=== PATIENT | female | born 1970 | race African-American/Black ===

== ENCOUNTER 2024-12-29 17:23 | Inpatient (IN) | payer OTHER ==
[~2024-12-29] VITALS: Ht 167.6 cm; Wt 131.4 kg
[2024-12-29 17:45] LABS: VENOUS BASE EXCESS 0.6 (-2.0-2.0); VENOUS HCO3 25.5 MMOL/L (23.0-27.0); VENOUS O2 SATURATION 92.3 % (60.0-80.0); VENOUS PARTIAL PRESSURE CO2 42.2 mmHg (38.0-50.0); VENOUS PARTIAL PRESSURE O2 70.0 mmHg (30.0-50.0); VENOUS PH 7.399 UNITS (7.330-7.430); VENOUS STANDARD HCO3 25.0 MMOL/L; VENOUS TOTAL CO2 26.8 MMOL/L (24.0-28.0)
[2024-12-29 18:00] LABS: BASO # 0.1 10^3/uL (0.0-0.2); BASO % 0.7 % (0.0-1.0); EOS # 0.4 10^3/uL (0.0-0.5); EOS % 5.2 % (0.0-3.0); LYMPH # 1.9 10^3/uL (1.5-5.0); LYMPH % 27.8 % (24.0-44.0); MONO # 0.6 10^3/uL (0.0-0.8); MONO % 8.3 % (2.0-8.0); NEUTROPHILS # 4.0 10^3/uL (1.5-8.5); NEUTROPHILS % 57.7 % (36.0-66.0); PLATELET COUNT, AUTOMATED 200 10^3/uL (150-450)
[2024-12-29 18:07] LABS: INR 1.39
[2024-12-29 18:14] LABS: CPK CREATINE PHOSPHOKINASE 332 U/L (34-145)
[2024-12-29 18:20] LABS: ALT/SGPT 13 U/L (7.0-40); AST/SGOT 16 U/L (<34); CALCIUM LEVEL 8.0 MG/DL (8.5-10.1); CARBON DIOXIDE LEVEL 26 MMOL/L (20-31); CHLORIDE LEVEL 106 MMOL/L (98-107); CK-MB VALUE MASS < 1.0 NG/ML (<3.6); CREATININE FOR GFR 0.72 MG/DL (0.55-1.30); FREE T4 1.11 NG/DL (0.89-1.76); GLOMERULAR FILTRATION RATE > 90.0 (>51); MB/CK RELATIVE INDEX 0.30 (< OR =4); POTASSIUM SERUM 3.6 MMOL/L (3.5-5.1); SODIUM LEVEL 141 MMOL/L (136-145)
[2024-12-29 18:32] LABS: IRON (FE) 23 UG/DL (50-170); PERCENT SATURATION 7.0 % (13.2-45.0)
[2024-12-29] MEDS: PANTOPRAZOLE 40MG VIAL IV ONE ×2 (18:48→21:14)
[2024-12-29 19:33] LABS: CK-MB VALUE MASS < 1.0 NG/ML (<3.6)
[2024-12-29 19:35] LABS: CPK CREATINE PHOSPHOKINASE 319 U/L (34-145); MB/CK RELATIVE INDEX 0.31 (< OR =4)
[2024-12-29 19:54] VITALS: BP 162/69; TEMP 97.6; O2SAT 96
[2024-12-29 20:15] VITALS: BP 166/74; TEMP 97.2; O2SAT 97
[2024-12-29] MEDS ORDERED: TELM1TAB37 PO (20:44)
[2024-12-29] MEDS ORDERED: MONT10TA97 PO (20:44)
[2024-12-29] MEDS ORDERED: TIOT18INH INH (20:44)
[2024-12-29] MEDS ORDERED: DULA3PEN SQ (20:44)
[2024-12-29] MEDS ORDERED: ATOR1TAB21 PO (20:44)
[2024-12-29] MEDS ORDERED: ALBU2.5V10 INH (20:44)
[2024-12-29] MEDS ORDERED: FOLI0.4T5 PO (20:44)
[2024-12-29] MEDS ORDERED: IBUP80TA PO (20:44)
[2024-12-29] MEDS ORDERED: CARV12.5 PO (20:44)
[2024-12-29] MEDS ORDERED: FLUT15.820 NARES (20:44)
[2024-12-29] MEDS ORDERED: PANT40TA29 PO (20:44)
[2024-12-29] MEDS ORDERED: METF10004 PO (20:44)
[2024-12-29] MEDS ORDERED: VENTAER INH (20:44)
[2024-12-29] MEDS ORDERED: TIZA4CAP3 PO (20:44)
[2024-12-29] MEDS ORDERED: ROPI1TAB73 PO (20:44)
[2024-12-29] MEDS ORDERED: LEVO150T7 PO (20:44)
[2024-12-29] MEDS ORDERED: CLAR10CA3 PO (20:44)
[2024-12-29] MEDS ORDERED: ELIQ5TAB PO (20:44)
[2024-12-29] MEDS ORDERED: DULO1CAP6 PO (20:44)
[2024-12-29] MEDS ORDERED: NEUR800T PO (20:44)
[2024-12-29] MEDS ORDERED: FLEC100T27 PO (20:44)
[2024-12-29] MEDS ORDERED: HOME MED LIST COMPLETE! XX SCH (20:45)
[2024-12-29 21:06] VITALS: BP 173/74; TEMP 97.4; O2SAT 95
[2024-12-29] MEDS: OCTREOTIDE ACETATE 100MCG/ML VIAL **IV ADMINISTRATION ONLY IV ONE (21:16)
[2024-12-29] MEDS: cefTRIAXone SOD 1 GM in DEXTROSE 5% (D5W) ADV/MINI-BAG 50 ML IV SCH (21:39)
[2024-12-29] MEDS: PANTOPRAZOLE SODIUM 40 MG in DEXTROSE 5% (D5W) ADV/MINI-BAG 50 ML IV SCH (22:23)
[2024-12-29 22:25] VITALS: BP 184/79; TEMP 97.4; O2SAT 95
[2024-12-29 22:45] VITALS: BP 183/84; TEMP 97.6; O2SAT 95
[2024-12-29 23:44] VITALS: BP 176/80; TEMP 97.1; O2SAT 95
[2024-12-30] VITALS (18 sets, daily range): BP systolic 119–197; BP diastolic 56–90; PULSE 72; TEMP 97.6–98.1; O2SAT 89–98
[2024-12-30] MEDS: FUROSEMIDE 40 MG/4 ML VIAL IV ONE (00:39)
[2024-12-30] MEDS: MORPHINE 2 MG/ML 1 ML VIAL IV ONE ×2 (04:36→13:11)
[2024-12-30 05:02] LABS: PLATELET COUNT, AUTOMATED 204 10^3/uL (150-450)
[2024-12-30 05:24] LABS: CK-MB VALUE MASS 1.0 NG/ML (<3.6)
[2024-12-30 05:25] LABS: CPK CREATINE PHOSPHOKINASE 319.0 U/L (34-145); MB/CK RELATIVE INDEX 0.31 (< OR =4)
[2024-12-30] MEDS ORDERED: ALBUTEROL 90 MCG/ACT 8 GM HFA INHALER INH PRN (05:40)
[2024-12-30] MEDS ORDERED: ALBUTEROL SULFATE 2.5 MG/0.5 ML INH CONCENTRATE NEB SOLN INH PRN (05:40)
[2024-12-30 05:50] LABS: ALT/SGPT 15 U/L (7.0-40); AST/SGOT 20 U/L (<34); CALCIUM LEVEL 8.6 MG/DL (8.5-10.1); CARBON DIOXIDE LEVEL 27 MMOL/L (20-31); CHLORIDE LEVEL 105 MMOL/L (98-107); CREATININE FOR GFR 0.68 MG/DL (0.55-1.30); GLOMERULAR FILTRATION RATE > 90.0 (>51); MAGNESIUM LEVEL 1.9 MG/DL (1.8-2.4); POTASSIUM SERUM 3.8 MMOL/L (3.5-5.1); SODIUM LEVEL 145 MMOL/L (136-145)
[2024-12-30] MEDS: NS (Normal Saline) 0.9% 1,000 ML IV SCH (06:36)
[2024-12-30] MEDS ORDERED: GLUCAGON INJ 1 MG VIAL SC PRN (08:35)
[2024-12-30] MEDS ORDERED: MORPHINE 2 MG/ML 1 ML VIAL IV PRN (08:35)
[2024-12-30] MEDS ORDERED: GLUCOSE 4 GM CHEW PO PRN (08:35)
[2024-12-30] MEDS ORDERED: DEXTROSE 50% 50 ML SYRINGE IV PRN (08:35)
[2024-12-30] MEDS: PANTOPRAZOLE 40MG VIAL IV SCH (09:00)
[2024-12-30] MEDS: MORPHINE 4 MG/ML 1 ML VIAL IV PRN (09:00)
[2024-12-30] MEDS: TIOTROPIUM BROM 2.5MCG/ACTUATION 4GM INH INH SCH (09:33)
[2024-12-30] MEDS: INSULIN LISPRO (NovoLOG) PER UNIT SC SCH ×2 (12:00→20:49)
[2024-12-30] MEDS ORDERED: GABA-284 PO (12:53)
[2024-12-30] MEDS: MONTELUKAST 10 MG TAB PO SCH (13:09)
[2024-12-30] MEDS: FOLIC ACID 1 MG TAB PO SCH (13:09)
[2024-12-30] MEDS: SUCRALFATE SUSP 1GM/10ML UD PO SCH (13:10)
[2024-12-30] MEDS: FLECAINIDE 50 MG TABLET PO SCH (13:11)
[2024-12-30] MEDS: LEVOTHYROXINE 150 MCG TABLET (0.15 MG) PO SCH (13:45)
[2024-12-30] MEDS ORDERED: PROHANCE 279.3MG/ML 5ML VIAL As Ordered ONE (13:47)
[2024-12-30] MEDS ORDERED: PROHANCE 279.3MG/ML 15ML VIAL As Ordered ONE (13:49)
[2024-12-30] MEDS: GABAPENTIN 400 MG CAP PO PRN (15:31)
[2024-12-30 16:22] LABS: PLATELET COUNT, AUTOMATED 177 10^3/uL (150-450)
[2024-12-30] MEDS: ATORVASTATIN 20 MG TAB PO SCH (20:42)
[2024-12-31] VITALS (22 sets, daily range): BP systolic 107–150; BP diastolic 54–70; TEMP 97.6–98.4; O2SAT 87–98
[2024-12-31 03:32] LABS: APPEARANCE, URINE CLEAR (CLEAR); BACTERIA, URINE AUTO NEGATIVE (NEGATIVE); BILIRUBIN, URINE AUTO NEGATIVE (NEGATIVE); BLOOD, URINE BLOOD NEGATIVE (NEGATIVE); GLUCOSE, URINE (UA) AUTO NEGATIVE (NEGATIVE); KETONE, URINE AUTO NEGATIVE (NEGATIVE); LEUKOCYTE ESTERASE, URINE AUTO NEGATIVE (NEGATIVE); NITRITE, URINE AUTO NEGATIVE (NEGATIVE); PROTEIN, URINE AUTO NEGATIVE (NEGATIVE); RBC, URINE AUTO 0 /HPF (0-3); SPECIFIC GRAVITY URINE AUTO 1.012 (1.002-1.035); SQUAMOUS EPITHELIAL CELL UR AU 0 /HPF (0-6); UROBILINOGEN, URINE AUTO 0.2 mg/dL (0.0-2.0); WBC, URINE AUTO 1 /HPF (0-3)
[2024-12-31 06:11] LABS: PLATELET COUNT, AUTOMATED 188 10^3/uL (150-450)
[2024-12-31 06:37] LABS: ALT/SGPT 12.0 U/L (7.0-40); AST/SGOT 12.0 U/L (<34); CALCIUM LEVEL 7.7 MG/DL (8.5-10.1); CARBON DIOXIDE LEVEL 28.0 MMOL/L (20-31); CHLORIDE LEVEL 104.0 MMOL/L (98-107); CREATININE FOR GFR 0.81 MG/DL (0.55-1.30); GLOMERULAR FILTRATION RATE 85.7 (>51); POTASSIUM SERUM 3.3 MMOL/L (3.5-5.1); SODIUM LEVEL 143.0 MMOL/L (136-145)
[2024-12-31] MEDS: INSULIN LISPRO (NovoLOG) PER UNIT SC SCH (07:30)
[2024-12-31] MEDS: POTASSIUM CHLORIDE 10MEQ SR TABLET PO ONE (15:32)
[2024-12-31] MEDS: MORPHINE 4 MG/ML 1 ML VIAL IV PRN (23:03)
[2025-01-01] VITALS (12 sets, daily range): BP systolic 146–185; BP diastolic 65–86; TEMP 97.3–98.6; O2SAT 88–97
[2025-01-01 06:23] LABS: PLATELET COUNT, AUTOMATED 193 10^3/uL (150-450)
[2025-01-01 06:56] LABS: ALT/SGPT < 9 U/L (7.0-40); AST/SGOT 13 U/L (<34); CALCIUM LEVEL 7.7 MG/DL (8.5-10.1); CARBON DIOXIDE LEVEL 26 MMOL/L (20-31); CHLORIDE LEVEL 106 MMOL/L (98-107); CREATININE FOR GFR 0.66 MG/DL (0.55-1.30); GLOMERULAR FILTRATION RATE > 90.0 (>51); POTASSIUM SERUM 3.4 MMOL/L (3.5-5.1); SODIUM LEVEL 141 MMOL/L (136-145)
[2025-01-01] MEDS: KCL 10MEQ/100ML SWI (KRUN) 10 MEQ in IV 1 EA IV SCH (08:23)
[2025-01-01] MEDS: POTASSIUM CHLORIDE 10MEQ SR TABLET PO ONE (10:09)
[2025-01-01] MEDS ORDERED: GABA-1635 PO (14:07)
[2025-01-01] MEDS ORDERED: LIDOCAINE 2% 100 MG/5 ML SDV (FOR ANES.) As Ordered ONE (16:03)
[2025-01-01] MEDS: POLYETHYLENE GLYCOL 238 GM BOTTLE PO ONE (17:07)
[2025-01-01 19:11] LABS: CALCIUM LEVEL 8.5 MG/DL (8.5-10.1); CARBON DIOXIDE LEVEL 25 MMOL/L (20-31); CHLORIDE LEVEL 105 MMOL/L (98-107); CREATININE FOR GFR 0.63 MG/DL (0.55-1.30); GLOMERULAR FILTRATION RATE > 90.0 (>51); POTASSIUM SERUM 3.8 MMOL/L (3.5-5.1); SODIUM LEVEL 139 MMOL/L (136-145)
[2025-01-02] VITALS (8 sets, daily range): BP systolic 147–184; BP diastolic 70–81; TEMP 96.5–98.2; O2SAT 90–96
[2025-01-02] MEDS: MAGNESIUM CITRATE 300 ML BTL PO ONE (06:01)
[2025-01-02 06:28] LABS: PLATELET COUNT, AUTOMATED 223 10^3/uL (150-450)
[2025-01-02 07:01] LABS: ALT/SGPT 9 U/L (7.0-40); AST/SGOT 15 U/L (<34); CALCIUM LEVEL 8.4 MG/DL (8.5-10.1); CARBON DIOXIDE LEVEL 25 MMOL/L (20-31); CHLORIDE LEVEL 104 MMOL/L (98-107); CREATININE FOR GFR 0.68 MG/DL (0.55-1.30); GLOMERULAR FILTRATION RATE > 90.0 (>51); POTASSIUM SERUM 3.6 MMOL/L (3.5-5.1); SODIUM LEVEL 140 MMOL/L (136-145)
[2025-01-02] MEDS: MORPHINE 2 MG/ML 1 ML VIAL IV PRN (10:02)
[2025-01-02] MEDS ORDERED: MORPHINE 2 MG/ML 1 ML VIAL IV ONE (20:00)
[2025-01-02 20:44] LABS: BASO # 0.1 10^3/uL (0.0-0.2); BASO % 1.0 % (0.0-1.0); EOS # 0.5 10^3/uL (0.0-0.5); EOS % 5.5 % (0.0-3.0); LYMPH # 1.5 10^3/uL (1.5-5.0); LYMPH % 15.9 % (24.0-44.0); MONO # 0.7 10^3/uL (0.0-0.8); MONO % 7.0 % (2.0-8.0); NEUTROPHILS # 6.8 10^3/uL (1.5-8.5); NEUTROPHILS % 70.4 % (36.0-66.0); PLATELET COUNT, AUTOMATED 220 10^3/uL (150-450)
[2025-01-02 20:50] LABS: ERYTHROCYTE SEDIMENTATION RATE 82 mm/hr (0-30)
[2025-01-02] MEDS: HYDROMORPHONE HCL 0.5 MG/0.5 ML SYRINGE IV PRN (20:50)
[2025-01-02 20:53] LABS: C REACTIVE PROTEIN QUANTITATIV 0.51 MG/DL (<1.0)
[2025-01-02 20:56] LABS: ALT/SGPT 11 U/L (7.0-40); AST/SGOT 16 U/L (<34); CALCIUM LEVEL 8.6 MG/DL (8.5-10.1); CARBON DIOXIDE LEVEL 26 MMOL/L (20-31); CHLORIDE LEVEL 106 MMOL/L (98-107); CREATININE FOR GFR 0.76 MG/DL (0.55-1.30); GLOMERULAR FILTRATION RATE > 90.0 (>51); MAGNESIUM LEVEL 1.8 MG/DL (1.8-2.4); PHOSPHORUS LEVEL 3.9 MG/DL (2.5-4.9); POTASSIUM SERUM 3.6 MMOL/L (3.5-5.1); SODIUM LEVEL 142 MMOL/L (136-145)
[2025-01-03] VITALS: O2SAT 90
[2025-01-03 01:26] LABS: APPEARANCE, URINE CLEAR (CLEAR); BACTERIA, URINE AUTO NEGATIVE (NEGATIVE); BILIRUBIN, URINE AUTO NEGATIVE (NEGATIVE); BLOOD, URINE BLOOD NEGATIVE (NEGATIVE); GLUCOSE, URINE (UA) AUTO NEGATIVE (NEGATIVE); KETONE, URINE AUTO NEGATIVE (NEGATIVE); LEUKOCYTE ESTERASE, URINE AUTO NEGATIVE (NEGATIVE); MUCUS, URINE SMALL (NEGATIVE); NITRITE, URINE AUTO NEGATIVE (NEGATIVE); PROTEIN, URINE AUTO NEGATIVE (NEGATIVE); RBC, URINE AUTO 0 /HPF (0-3); SPECIFIC GRAVITY URINE AUTO 1.005 (1.002-1.035); SQUAMOUS EPITHELIAL CELL UR AU 1 /HPF (0-6); UROBILINOGEN, URINE AUTO 0.2 mg/dL (0.0-2.0); WBC, URINE AUTO 0 /HPF (0-3)
[2025-01-03 03:21] VITALS: BP 138/64; TEMP 98.5; O2SAT 94
[2025-01-03 08:20] VITALS: BP 165/77; TEMP 98.3; O2SAT 99
[2025-01-03] MEDS: HYDROMORPHONE HCL 0.5 MG/0.5 ML SYRINGE IV PRN (10:01)
[2025-01-03] MEDS: TELMISARTAN 20 MG TAB PO SCH (10:07)
[2025-01-03] MEDS: LORATADINE 10 MG TAB PO SCH (10:08)
[2025-01-03] MEDS: PANTOPRAZOLE 40MG TAB PO SCH (10:09)
[2025-01-03 16:22] VITALS: BP 152/75; TEMP 97.3; O2SAT 100
[2025-01-03] MEDS: PERCOCET 5MG/325MG TAB PO PRN (17:14)
[2025-01-03 19:36] LABS: PLATELET COUNT, AUTOMATED 240 10^3/uL (150-450)
[2025-01-03 19:55] LABS: ALT/SGPT 11 U/L (7.0-40); AST/SGOT 12 U/L (<34); CALCIUM LEVEL 8.1 MG/DL (8.5-10.1); CARBON DIOXIDE LEVEL 27 MMOL/L (20-31); CHLORIDE LEVEL 105 MMOL/L (98-107); CREATININE FOR GFR 0.78 MG/DL (0.55-1.30); GLOMERULAR FILTRATION RATE 89.6 (>51); POTASSIUM SERUM 3.7 MMOL/L (3.5-5.1); SODIUM LEVEL 140 MMOL/L (136-145)
[2025-01-03] MEDS ORDERED: MORPHINE 4 MG/ML 1 ML VIAL IV ONE (20:10)
[2025-01-03] MEDS ORDERED: NALOXONE INJ 0.4MG/1ML VIAL IV PRN (20:15)
[2025-01-03] MEDS ORDERED: ISOVUE-370 76% 100 ML VIAL As Ordered ONE (20:15)
[2025-01-03 21:20] VITALS: BP 156/76; TEMP 97.7; O2SAT 99
[2025-01-03] MEDS: PERCOCET 5MG/325MG TAB PO ONE (21:27)
[2025-01-03] MEDS: DOCUSATE SODIUM 100 MG CAPSULE PO SCH (21:36)
[2025-01-04 03:11] VITALS: BP 155/73; TEMP 97.5; O2SAT 99
[2025-01-04 05:02] LABS: BASO # 0.1 10^3/uL (0.0-0.2); BASO % 1.2 % (0.0-1.0); EOS # 0.5 10^3/uL (0.0-0.5); EOS % 7.4 % (0.0-3.0); LYMPH # 1.8 10^3/uL (1.5-5.0); LYMPH % 25.6 % (24.0-44.0); MONO # 0.6 10^3/uL (0.0-0.8); MONO % 9.3 % (2.0-8.0); NEUTROPHILS # 3.9 10^3/uL (1.5-8.5); NEUTROPHILS % 56.2 % (36.0-66.0); PLATELET COUNT, AUTOMATED 222 10^3/uL (150-450)
[2025-01-04 05:41] LABS: ALT/SGPT 10 U/L (7.0-40); AST/SGOT 11 U/L (<34); CALCIUM LEVEL 8.2 MG/DL (8.5-10.1); CARBON DIOXIDE LEVEL 27 MMOL/L (20-31); CHLORIDE LEVEL 106 MMOL/L (98-107); CREATININE FOR GFR 0.72 MG/DL (0.55-1.30); GLOMERULAR FILTRATION RATE > 90.0 (>51); MAGNESIUM LEVEL 1.9 MG/DL (1.8-2.4); POTASSIUM SERUM 3.3 MMOL/L (3.5-5.1); SODIUM LEVEL 143 MMOL/L (136-145)
[2025-01-04] MEDS: PERCOCET 5MG/325MG TAB PO PRN (07:59)
[2025-01-04 10:28] LABS: CA19-9 TUMOR MARKER,CARBOHYDRA 28.7 U/ML (<35.0)
[2025-01-04] MEDS: POTASSIUM CHLORIDE 10MEQ SR TABLET PO SCH (11:43)
[2025-01-04 12:00] VITALS: BP 136/57; TEMP 97.5
[2025-01-04] MEDS ORDERED: PILL CUTTER 1 EACH XX PRN (12:30)
[2025-01-04] MEDS: HYDROmorphone 2 MG TAB PO PRN ×2 (12:45→19:00)
[2025-01-04] MEDS ORDERED: NALOXONE INJ 0.4MG/1ML VIAL IV PRN (14:20)
[2025-01-04] MEDS: GABAPENTIN 400 MG CAP PO PRN (15:42)
[2025-01-04 20:03] VITALS: BP 158/64; TEMP 97.7; O2SAT 96
[2025-01-05 04:24] VITALS: BP 138/59; TEMP 97.5; O2SAT 97
[2025-01-05 05:12] LABS: KETONE, URINE AUTO RFX NEGATIVE (NEGATIVE); LEUKOCYTE ESTERASE UR AUTO RFX NEGATIVE (NEGATIVE); NITRITE, URINE AUTO RFX NEGATIVE (NEGATIVE); RBC, URINE AUTO RFX 0 /HPF (0-3); SQUAM EPITHELIAL CELL UR AURFX 4 /HPF (0-6); WBC, URINE AUTO RFX 0 /HPF (0-3)
[2025-01-05 12:00] VITALS: BP 149/68; TEMP 97.7; O2SAT 99
[2025-01-05] MEDS: HYDROMORPHONE HCL 0.5 MG/0.5 ML SYRINGE IV PRN (14:24)
[2025-01-05] MEDS ORDERED: SENNA 8.6 MG TAB PO PRN (14:30)
[2025-01-05] MEDS: GABAPENTIN 400 MG CAP PO SCH (18:18)
[2025-01-05 20:35] VITALS: BP 152/77; TEMP 97.7; O2SAT 99
[2025-01-05] MEDS: SENNA 8.6 MG TAB PO SCH (20:41)
[2025-01-05] MEDS: FERROUS GLUCONATE 324 MG TAB PO SCH (20:41)
[2025-01-05] MEDS: DOCUSATE SODIUM 100 MG CAPSULE PO SCH (20:41)
[2025-01-06 03:49] VITALS: BP 113/69; TEMP 97.7; O2SAT 95
[2025-01-06 11:57] VITALS: BP 128/59; TEMP 97.7; O2SAT 96
[2025-01-06 20:43] VITALS: BP 170/86; TEMP 97.9; O2SAT 95
[2025-01-07 04:36] VITALS: BP 155/72; TEMP 97.7; O2SAT 93
[2025-01-07] MEDS: MOM 30 ML SUSPENSION UDC PO SCH (09:12)
[2025-01-07 12:00] VITALS: BP 156/76; TEMP 97.9; O2SAT 97
[2025-01-07] MEDS: HYDROmorphone HCL 2 MG/ML 1 ML VIAL IV PRN (13:08)
[2025-01-07] MEDS: MAGNESIUM CITRATE 300 ML BTL PO ONE (15:45)
[2025-01-07 20:00] VITALS: BP 158/79; TEMP 97.5; O2SAT 95
[2025-01-08] VITALS (10 sets, daily range): BP systolic 121–154; BP diastolic 48–77; TEMP 97.3–98.2; O2SAT 88–97
[2025-01-08] MEDS: cefTRIAXone SOD 2 GM in DEXTROSE 5% (D5W) ADV/MINI-BAG 50 ML IV ONE (06:06)
[2025-01-08] MEDS ORDERED: ONDANSETRON 4MG 2ML VIAL As Ordered ONE (08:37)
[2025-01-08] MEDS ORDERED: ROCURONIUM BROMIDE 50MG/5ML VIAL As Ordered ONE (08:37)
[2025-01-08] MEDS ORDERED: dexAMETHasone 4 MG/ML 1 ML VIAL As Ordered ONE (08:37)
[2025-01-08] MEDS ORDERED: MIDAZOLAM INJ 2 MG/2 ML VIAL As Ordered ONE (08:37)
[2025-01-08] MEDS: KCL 10MEQ/100ML SWI (KRUN) 10 MEQ in IV 1 EA IV SCH (10:00)
[2025-01-08 10:08] LABS: PLATELET COUNT, AUTOMATED 617 10^3/uL (150-450)
[2025-01-08] MEDS ORDERED: hydrALAZINE 20 MG/ML 1 ML VIAL As Ordered ONE (10:42)
[2025-01-08] MEDS ORDERED: CALCIUM CHLORIDE 10% 1 GM/10 ML SYR As Ordered ONE (10:43)
[2025-01-08] MEDS ORDERED: SUGAMMADEX SODIUM 500 MG/5 ML VIAL As Ordered ONE (11:40)
[2025-01-08] MEDS: LR 1,000 ML IV SCH (12:00)
[2025-01-08] MEDS: GLUCAGON INJ 1 MG VIAL As Ordered ONE (12:29)
[2025-01-08] MEDS: ONDANSETRON 4MG 2ML VIAL IV PRN (12:41)
[2025-01-08] MEDS: HYDROMORPHONE HCL 0.5 MG/0.5 ML SYRINGE IV PRN (12:42)
[2025-01-08] MEDS: hydrALAZINE 20 MG/ML 1 ML VIAL IV PRN (13:19)
[2025-01-08] MEDS ORDERED: ALBUTEROL SULFATE 2.5 MG/0.5 ML INH CONCENTRATE NEB SOLN NEB PRN (13:35)
[2025-01-08] MEDS ORDERED: PERCOCET 5MG/325MG TAB PO PRN ×2 (13:40)
[2025-01-08] MEDS: KETOROLAC 30 MG/ML 1 ML VIAL IV ONE (13:50)
[2025-01-09] VITALS (18 sets, daily range): BP systolic 106–140; BP diastolic 53–64; TEMP 97.7–101.9; O2SAT 87–96
[2025-01-09 04:02] LABS: BASO # 0.1 10^3/uL (0.0-0.2); BASO % 0.4 % (0.0-1.0); EOS # 0.0 10^3/uL (0.0-0.5); EOS % 0.1 % (0.0-3.0); LYMPH # 1.5 10^3/uL (1.5-5.0); LYMPH % 9.1 % (24.0-44.0); MONO # 1.2 10^3/uL (0.0-0.8); MONO % 7.2 % (2.0-8.0); NEUTROPHILS # 13.2 10^3/uL (1.5-8.5); NEUTROPHILS % 82.3 % (36.0-66.0)
[2025-01-09 04:03] LABS: PLATELET COUNT, AUTOMATED 755 10^3/uL (150-450)
[2025-01-09 04:20] LABS: CALCIUM LEVEL 8.2 MG/DL (8.5-10.1); CARBON DIOXIDE LEVEL 28.0 MMOL/L (20-31); CHLORIDE LEVEL 105.0 MMOL/L (98-107); CREATININE FOR GFR 0.79 MG/DL (0.55-1.30); GLOMERULAR FILTRATION RATE 88.3 (>51); MAGNESIUM LEVEL 2.6 MG/DL (1.8-2.4); POTASSIUM SERUM 5.0 MMOL/L (3.5-5.1); SODIUM LEVEL 141.0 MMOL/L (136-145)
[2025-01-09] MEDS: SIMETHICONE 80MG CHEW TAB PO SCH (18:05)
[2025-01-09] MEDS: LR 1,000 ML IV ONE (20:57)
[2025-01-09] MEDS: ACETAMINOPHEN *IV* 1,000 MG in IV 1 EA IV ONE (21:07)
[2025-01-09] MEDS: PIPERACILLIN/TAZOBACTAM SOD 4.5 GM in DEXTROSE 5% (D5W) ADV/MINI-BAG 50 ML IV SCH (22:18)
[2025-01-09] MEDS: LR 1,000 ML IV SCH (23:20)
[2025-01-09] MEDS: KETOROLAC 30 MG/ML 1 ML VIAL IV ONE (23:48)
[2025-01-10] VITALS (15 sets, daily range): BP systolic 114–173; BP diastolic 58–82; TEMP 97.7–102.3; O2SAT 88–96
[2025-01-10 10:13] LABS: BASO # 0.1 10^3/uL (0.0-0.2); BASO % 1.0 % (0.0-1.0); EOS # 0.3 10^3/uL (0.0-0.5); EOS % 3.0 % (0.0-3.0); LYMPH # 1.1 10^3/uL (1.5-5.0); LYMPH % 10.0 % (24.0-44.0); MONO # 1.0 10^3/uL (0.0-0.8); MONO % 9.0 % (2.0-8.0); NEUTROPHILS # 8.5 10^3/uL (1.5-8.5); NEUTROPHILS % 76.4 % (36.0-66.0); PLATELET COUNT, AUTOMATED 675 10^3/uL (150-450)
[2025-01-10] MEDS: BISACODYL 10 MG SUPP PR ONE (10:32)
[2025-01-10 10:40] LABS: CALCIUM LEVEL 8.1 MG/DL (8.5-10.1); CARBON DIOXIDE LEVEL 27 MMOL/L (20-31); CHLORIDE LEVEL 106 MMOL/L (98-107); CREATININE FOR GFR 0.76 MG/DL (0.55-1.30); GLOMERULAR FILTRATION RATE > 90.0 (>51); MAGNESIUM LEVEL 2.3 MG/DL (1.8-2.4); POTASSIUM SERUM 5.2 MMOL/L (3.5-5.1); SODIUM LEVEL 142 MMOL/L (136-145)
[2025-01-10] MEDS: ACETAMINOPHEN 325 MG TAB PO PRN (12:25)
[2025-01-10] MEDS: KETOROLAC 60 MG/2 ML VIAL IM ONE (17:46)
[2025-01-10] MEDS: HYDROMORPHONE HCL 0.5 MG/0.5 ML SYRINGE IV PRN ×2 (18:57→22:52)
[2025-01-11] VITALS (10 sets, daily range): BP systolic 108–179; BP diastolic 54–85; TEMP 99.1–102.1; O2SAT 91–97
[2025-01-11] MEDS: D5W/LR 1,000 ML IV SCH (01:28)
[2025-01-11 05:08] LABS: BASO # 0.1 10^3/uL (0.0-0.2); BASO % 0.5 % (0.0-1.0); EOS # 0.5 10^3/uL (0.0-0.5); EOS % 3.4 % (0.0-3.0); LYMPH # 0.9 10^3/uL (1.5-5.0); LYMPH % 7.1 % (24.0-44.0); MONO # 1.2 10^3/uL (0.0-0.8); MONO % 8.8 % (2.0-8.0); NEUTROPHILS # 10.7 10^3/uL (1.5-8.5); NEUTROPHILS % 79.9 % (36.0-66.0)
[2025-01-11 05:14] LABS: PLATELET COUNT, AUTOMATED 835 10^3/uL (150-450)
[2025-01-11 05:40] LABS: CALCIUM LEVEL 8.2 MG/DL (8.5-10.1); CARBON DIOXIDE LEVEL 28 MMOL/L (20-31); CHLORIDE LEVEL 104 MMOL/L (98-107); CREATININE FOR GFR 0.65 MG/DL (0.55-1.30); GLOMERULAR FILTRATION RATE > 90.0 (>51); MAGNESIUM LEVEL 2.1 MG/DL (1.8-2.4); POTASSIUM SERUM 4.9 MMOL/L (3.5-5.1); SODIUM LEVEL 141 MMOL/L (136-145)
[2025-01-11] MEDS: BISACODYL 10 MG SUPP PR ONE (07:30)
[2025-01-11] MEDS: NS (Normal Saline) 0.9% 1,000 ML IV SCH (13:07)
[2025-01-11] MEDS: ENOXAPARIN 40 MG/0.4 ML SYRINGE (J1650 PER 10MG) SC SCH (18:20)
[2025-01-11] MEDS: LR 1,000 ML IV SCH (18:21)
[2025-01-11] MEDS: KETOROLAC 30 MG/ML 1 ML VIAL IV ONE (22:00)
[2025-01-12] VITALS (7 sets, daily range): BP systolic 145–163; BP diastolic 64–75; TEMP 98.2–99; O2SAT 92–95
[2025-01-12 05:23] LABS: BASO # 0.1 10^3/uL (0.0-0.2); BASO % 0.7 % (0.0-1.0); EOS # 0.6 10^3/uL (0.0-0.5); EOS % 3.9 % (0.0-3.0); LYMPH # 0.9 10^3/uL (1.5-5.0); LYMPH % 6.4 % (24.0-44.0); MONO # 1.2 10^3/uL (0.0-0.8); MONO % 8.5 % (2.0-8.0); NEUTROPHILS # 11.7 10^3/uL (1.5-8.5); NEUTROPHILS % 80.2 % (36.0-66.0); PLATELET COUNT, AUTOMATED 835 10^3/uL (150-450)
[2025-01-12 05:44] LABS: ALT/SGPT 10 U/L (7.0-40); AST/SGOT 15 U/L (<34); CALCIUM LEVEL 8.2 MG/DL (8.5-10.1); CARBON DIOXIDE LEVEL 27 MMOL/L (20-31); CHLORIDE LEVEL 105 MMOL/L (98-107); CREATININE FOR GFR 0.67 MG/DL (0.55-1.30); GLOMERULAR FILTRATION RATE > 90.0 (>51); MAGNESIUM LEVEL 1.9 MG/DL (1.8-2.4); POTASSIUM SERUM 4.3 MMOL/L (3.5-5.1); SODIUM LEVEL 142 MMOL/L (136-145)
[2025-01-12] MEDS ORDERED: PERCOCET 5MG/325MG TAB PO PRN (10:25)
[2025-01-12] MEDS: KETOROLAC 30 MG/ML 1 ML VIAL IV SCH (10:37)
[2025-01-12] MEDS: PERCOCET 5MG/325MG TAB PO PRN (12:10)
[2025-01-12] MEDS: VANCOMYCIN HCL 1,000 MG, VIAL MATE ADAPTER 1 EACH in NS 250 ML IV ONE (15:05)
[2025-01-12] MEDS: VANCOMYCIN HCL 1,000 MG, VIAL MATE ADAPTER 1 EACH in NS 250 ML IV SCH (16:39)
[2025-01-12] MEDS: NYSTATIN 100,000 UNITS/GM TOPICAL PWD 15GM TOP SCH (21:59)
[2025-01-13] VITALS (9 sets, daily range): BP systolic 108–154; BP diastolic 52–73; TEMP 97.3–98.3; O2SAT 92–97
[2025-01-13 06:31] LABS: BASO # 0.1 10^3/uL (0.0-0.2); BASO % 0.7 % (0.0-1.0); EOS # 0.9 10^3/uL (0.0-0.5); EOS % 7.2 % (0.0-3.0); LYMPH # 0.7 10^3/uL (1.5-5.0); LYMPH % 6.1 % (24.0-44.0); MONO # 1.0 10^3/uL (0.0-0.8); MONO % 8.3 % (2.0-8.0); NEUTROPHILS # 9.4 10^3/uL (1.5-8.5); NEUTROPHILS % 77.3 % (36.0-66.0); PLATELET COUNT, AUTOMATED 773 10^3/uL (150-450)
[2025-01-13 07:01] LABS: VANCOMYCIN LEVEL TROUGH 10.8 UG/ML (10.0-20.0)
[2025-01-13 07:24] LABS: ALT/SGPT < 9 U/L (7.0-40); AST/SGOT 14 U/L (<34); CALCIUM LEVEL 8.0 MG/DL (8.5-10.1); CARBON DIOXIDE LEVEL 28 MMOL/L (20-31); CHLORIDE LEVEL 105 MMOL/L (98-107); CREATININE FOR GFR 0.64 MG/DL (0.55-1.30); GLOMERULAR FILTRATION RATE > 90.0 (>51); MAGNESIUM LEVEL 1.8 MG/DL (1.8-2.4); POTASSIUM SERUM 3.6 MMOL/L (3.5-5.1); SODIUM LEVEL 142 MMOL/L (136-145)
[2025-01-13] MEDS: APIXABAN 5 MG TAB PO SCH (08:46)
[2025-01-13] MEDS: ACETAMINOPHEN 325 MG TAB PO SCH (14:31)
[2025-01-14 05:38] VITALS: BP 154/73; TEMP 98.2; O2SAT 97
[2025-01-14 06:43] LABS: BASO # 0.1 10^3/uL (0.0-0.2); BASO % 0.8 % (0.0-1.0); EOS # 1.1 10^3/uL (0.0-0.5); EOS % 9.5 % (0.0-3.0); LYMPH # 0.7 10^3/uL (1.5-5.0); LYMPH % 6.3 % (24.0-44.0); MONO # 0.7 10^3/uL (0.0-0.8); MONO % 6.2 % (2.0-8.0); NEUTROPHILS # 8.6 10^3/uL (1.5-8.5); NEUTROPHILS % 76.8 % (36.0-66.0); PLATELET COUNT, AUTOMATED 841 10^3/uL (150-450)
[2025-01-14 07:14] LABS: VANCOMYCIN LEVEL TROUGH 13.5 UG/ML (10.0-20.0)
[2025-01-14 07:15] LABS: CALCIUM LEVEL 7.9 MG/DL (8.5-10.1); CARBON DIOXIDE LEVEL 27 MMOL/L (20-31); CHLORIDE LEVEL 105 MMOL/L (98-107); CREATININE FOR GFR 0.61 MG/DL (0.55-1.30); GLOMERULAR FILTRATION RATE > 90.0 (>51); MAGNESIUM LEVEL 1.8 MG/DL (1.8-2.4); POTASSIUM SERUM 3.8 MMOL/L (3.5-5.1); SODIUM LEVEL 144 MMOL/L (136-145)
[2025-01-14 08:07] VITALS: O2SAT 93
[2025-01-14 11:14] VITALS: O2SAT 92
[2025-01-14 12:00] VITALS: BP 155/72; TEMP 100.7; O2SAT 90
[2025-01-14] MEDS: GASTROGRAFIN SOLUTION 30ML PO SCH (12:31)
[2025-01-14 14:00] VITALS: TEMP 99.7
[2025-01-14 20:04] VITALS: BP 138/66; TEMP 98.6; O2SAT 92
[2025-01-14] MEDS: ACETAMINOPHEN 325 MG TAB PO PRN (21:16)
[2025-01-15 04:33] VITALS: BP 143/71; TEMP 98.5; O2SAT 92
[2025-01-15 05:17] LABS: BASO # 0.1 10^3/uL (0.0-0.2); BASO % 0.5 % (0.0-1.0); EOS # 1.0 10^3/uL (0.0-0.5); EOS % 9.4 % (0.0-3.0); LYMPH # 1.1 10^3/uL (1.5-5.0); LYMPH % 10.3 % (24.0-44.0); MONO # 0.9 10^3/uL (0.0-0.8); MONO % 8.5 % (2.0-8.0); NEUTROPHILS # 7.8 10^3/uL (1.5-8.5); NEUTROPHILS % 71.0 % (36.0-66.0); PLATELET COUNT, AUTOMATED 764 10^3/uL (150-450)
[2025-01-15 05:50] LABS: CALCIUM LEVEL 7.7 MG/DL (8.5-10.1); CARBON DIOXIDE LEVEL 28 MMOL/L (20-31); CHLORIDE LEVEL 105 MMOL/L (98-107); CREATININE FOR GFR 0.64 MG/DL (0.55-1.30); GLOMERULAR FILTRATION RATE > 90.0 (>51); MAGNESIUM LEVEL 1.8 MG/DL (1.8-2.4); POTASSIUM SERUM 3.3 MMOL/L (3.5-5.1); SODIUM LEVEL 141 MMOL/L (136-145)
[2025-01-15] MEDS: POTASSIUM CHLORIDE 10MEQ SR TABLET PO ONE (08:52)
[2025-01-15 10:20] VITALS: TEMP 100.2; O2SAT 94
[2025-01-15 12:00] VITALS: BP 144/67; TEMP 99.6; O2SAT 96
[2025-01-15 20:28] VITALS: BP 155/65; TEMP 99.1; O2SAT 90
[2025-01-16 03:59] VITALS: BP 153/75; TEMP 97.9; O2SAT 91
[2025-01-16 06:25] LABS: BASO # 0.1 10^3/uL (0.0-0.2); BASO % 0.8 % (0.0-1.0); EOS # 1.1 10^3/uL (0.0-0.5); EOS % 11.6 % (0.0-3.0); LYMPH # 1.1 10^3/uL (1.5-5.0); LYMPH % 11.0 % (24.0-44.0); MONO # 0.8 10^3/uL (0.0-0.8); MONO % 8.5 % (2.0-8.0); NEUTROPHILS # 6.6 10^3/uL (1.5-8.5); NEUTROPHILS % 67.8 % (36.0-66.0); PLATELET COUNT, AUTOMATED 698 10^3/uL (150-450)
[2025-01-16 06:51] LABS: MAGNESIUM LEVEL 1.9 MG/DL (1.8-2.4)
[2025-01-16 06:52] LABS: CALCIUM LEVEL 7.9 MG/DL (8.5-10.1); CARBON DIOXIDE LEVEL 28 MMOL/L (20-31); CHLORIDE LEVEL 105 MMOL/L (98-107); CREATININE FOR GFR 0.72 MG/DL (0.55-1.30); GLOMERULAR FILTRATION RATE > 90.0 (>51); POTASSIUM SERUM 3.5 MMOL/L (3.5-5.1); SODIUM LEVEL 143 MMOL/L (136-145)
[2025-01-16 06:53] LABS: C REACTIVE PROTEIN QUANTITATIV 8.85 MG/DL (<1.0)
[2025-01-16 11:57] VITALS: BP 149/69; TEMP 98.8; O2SAT 90
[2025-01-16] MEDS: VANCOMYCIN 125MG CAPSULE PO SCH (14:36)
[2025-01-16 20:21] VITALS: BP 164/82; TEMP 99.3; O2SAT 92
[2025-01-17 03:50] VITALS: BP 158/83; TEMP 98.8; O2SAT 91
[2025-01-17 06:15] LABS: BASO # 0.1 10^3/uL (0.0-0.2); BASO % 0.9 % (0.0-1.0); EOS # 1.1 10^3/uL (0.0-0.5); EOS % 10.4 % (0.0-3.0); LYMPH # 1.3 10^3/uL (1.5-5.0); LYMPH % 12.2 % (24.0-44.0); MONO # 1.0 10^3/uL (0.0-0.8); MONO % 8.9 % (2.0-8.0); NEUTROPHILS # 7.2 10^3/uL (1.5-8.5); NEUTROPHILS % 67.2 % (36.0-66.0); PLATELET COUNT, AUTOMATED 743 10^3/uL (150-450)
[2025-01-17 06:24] LABS: C REACTIVE PROTEIN QUANTITATIV 6.26 MG/DL (<1.0)
[2025-01-17 06:25] LABS: CALCIUM LEVEL 8.0 MG/DL (8.5-10.1); CARBON DIOXIDE LEVEL 28 MMOL/L (20-31); CHLORIDE LEVEL 109 MMOL/L (98-107); CREATININE FOR GFR 0.63 MG/DL (0.55-1.30); GLOMERULAR FILTRATION RATE > 90.0 (>51); MAGNESIUM LEVEL 1.8 MG/DL (1.8-2.4); POTASSIUM SERUM 3.8 MMOL/L (3.5-5.1); SODIUM LEVEL 146 MMOL/L (136-145)
[2025-01-17 12:29] VITALS: BP 164/75; TEMP 99; O2SAT 90
[2025-01-17 20:13] VITALS: BP 157/71; TEMP 98.8; O2SAT 92
[2025-01-18 04:23] VITALS: BP 176/96; TEMP 98.8; O2SAT 92
[2025-01-18 06:38] LABS: BASO # 0.1 10^3/uL (0.0-0.2); BASO % 0.9 % (0.0-1.0); EOS # 0.9 10^3/uL (0.0-0.5); EOS % 8.2 % (0.0-3.0); LYMPH # 1.6 10^3/uL (1.5-5.0); LYMPH % 15.4 % (24.0-44.0); MONO # 1.0 10^3/uL (0.0-0.8); MONO % 9.4 % (2.0-8.0); NEUTROPHILS # 6.9 10^3/uL (1.5-8.5); NEUTROPHILS % 65.7 % (36.0-66.0); PLATELET COUNT, AUTOMATED 736 10^3/uL (150-450)
[2025-01-18 07:01] LABS: CALCIUM LEVEL 8.0 MG/DL (8.5-10.1); CARBON DIOXIDE LEVEL 30 MMOL/L (20-31); CHLORIDE LEVEL 108 MMOL/L (98-107); CREATININE FOR GFR 0.66 MG/DL (0.55-1.30); GLOMERULAR FILTRATION RATE > 90.0 (>51); MAGNESIUM LEVEL 1.8 MG/DL (1.8-2.4); POTASSIUM SERUM 3.8 MMOL/L (3.5-5.1); SODIUM LEVEL 146 MMOL/L (136-145)
[2025-01-18 12:00] VITALS: BP 162/75; TEMP 99.1; O2SAT 95
[2025-01-18 15:37] VITALS: TEMP 100.7
[2025-01-18 17:25] VITALS: TEMP 99.6
[2025-01-18 19:41] VITALS: BP 199/98; TEMP 100.4; O2SAT 92
[2025-01-18 20:33] VITALS: BP 196/96
[2025-01-19 03:16] VITALS: BP 145/70; TEMP 99.8; O2SAT 91
[2025-01-19 06:22] LABS: BASO # 0.1 10^3/uL (0.0-0.2); BASO % 1.1 % (0.0-1.0); EOS # 0.8 10^3/uL (0.0-0.5); EOS % 7.7 % (0.0-3.0); LYMPH # 1.7 10^3/uL (1.5-5.0); LYMPH % 15.3 % (24.0-44.0); MONO # 1.1 10^3/uL (0.0-0.8); MONO % 10.4 % (2.0-8.0); NEUTROPHILS # 7.0 10^3/uL (1.5-8.5); NEUTROPHILS % 64.9 % (36.0-66.0); PLATELET COUNT, AUTOMATED 601 10^3/uL (150-450)
[2025-01-19 06:52] LABS: ALT/SGPT < 9 U/L (7.0-40); AST/SGOT 16 U/L (<34); CALCIUM LEVEL 8.0 MG/DL (8.5-10.1); CARBON DIOXIDE LEVEL 30 MMOL/L (20-31); CHLORIDE LEVEL 107 MMOL/L (98-107); CREATININE FOR GFR 0.61 MG/DL (0.55-1.30); GLOMERULAR FILTRATION RATE > 90.0 (>51); MAGNESIUM LEVEL 1.8 MG/DL (1.8-2.4); POTASSIUM SERUM 3.7 MMOL/L (3.5-5.1); SODIUM LEVEL 146 MMOL/L (136-145)
[2025-01-19] MEDS: FUROSEMIDE 40 MG TAB PO ONE (07:03)
[2025-01-19 08:43] LABS: C REACTIVE PROTEIN QUANTITATIV 3.76 MG/DL (<1.0)
[2025-01-19 11:34] VITALS: BP 146/70; TEMP 98.5; O2SAT 95
[2025-01-19 16:33] VITALS: TEMP 99.9
[2025-01-19 21:28] VITALS: BP 175/91; TEMP 99.9; O2SAT 91
[2025-01-20 03:26] VITALS: BP 156/74; TEMP 98.7; O2SAT 91
[2025-01-20 05:12] LABS: BASO # 0.1 10^3/uL (0.0-0.2); BASO % 0.8 % (0.0-1.0); EOS # 0.7 10^3/uL (0.0-0.5); EOS % 6.3 % (0.0-3.0); LYMPH # 1.6 10^3/uL (1.5-5.0); LYMPH % 13.6 % (24.0-44.0); MONO # 1.2 10^3/uL (0.0-0.8); MONO % 9.9 % (2.0-8.0); NEUTROPHILS # 8.1 10^3/uL (1.5-8.5); NEUTROPHILS % 68.8 % (36.0-66.0); PLATELET COUNT, AUTOMATED 511 10^3/uL (150-450)
[2025-01-20 05:34] LABS: CALCIUM LEVEL 8.0 MG/DL (8.5-10.1); CARBON DIOXIDE LEVEL 29 MMOL/L (20-31); CHLORIDE LEVEL 107 MMOL/L (98-107); CREATININE FOR GFR 0.59 MG/DL (0.55-1.30); GLOMERULAR FILTRATION RATE > 90.0 (>51); POTASSIUM SERUM 3.7 MMOL/L (3.5-5.1); SODIUM LEVEL 146 MMOL/L (136-145)
[2025-01-20] MEDS: oxyCODONE 20MG CR TAB PO SCH (11:47)
[2025-01-20 12:00] VITALS: BP 128/55; TEMP 98.7; O2SAT 90
[2025-01-20 18:52] VITALS: TEMP 100.1
[2025-01-20 20:20] VITALS: BP 130/77; TEMP 99.6; O2SAT 93
[2025-01-21 03:50] VITALS: BP 113/59; TEMP 98.4; O2SAT 90
[2025-01-21 04:46] LABS: BASO # 0.1 10^3/uL (0.0-0.2); BASO % 1.0 % (0.0-1.0); EOS # 0.9 10^3/uL (0.0-0.5); EOS % 9.0 % (0.0-3.0); LYMPH # 1.6 10^3/uL (1.5-5.0); LYMPH % 16.5 % (24.0-44.0); MONO # 0.9 10^3/uL (0.0-0.8); MONO % 8.7 % (2.0-8.0); NEUTROPHILS # 6.4 10^3/uL (1.5-8.5); NEUTROPHILS % 64.3 % (36.0-66.0); PLATELET COUNT, AUTOMATED 427 10^3/uL (150-450)
[2025-01-21 05:17] LABS: MAGNESIUM LEVEL 1.7 MG/DL (1.8-2.4)
[2025-01-21 09:38] LABS: CALCIUM LEVEL 7.7 MG/DL (8.5-10.1); CARBON DIOXIDE LEVEL 30 MMOL/L (20-31); CHLORIDE LEVEL 110 MMOL/L (98-107); CREATININE FOR GFR 0.65 MG/DL (0.55-1.30); GLOMERULAR FILTRATION RATE > 90.0 (>51); POTASSIUM SERUM 3.8 MMOL/L (3.5-5.1); SODIUM LEVEL 150 MMOL/L (136-145)
[2025-01-21 12:00] VITALS: BP 143/70; TEMP 98.9; O2SAT 93
[2025-01-21] MEDS: D5W 1,000 ML IV SCH (15:12)
[2025-01-21] MEDS: FUROSEMIDE 40 MG/4 ML VIAL IV ONE (15:12)
[2025-01-21 19:49] VITALS: BP 147/79; TEMP 97.1; O2SAT 93
[2025-01-22 04:53] VITALS: BP 143/62; TEMP 98.5; O2SAT 91
[2025-01-22 06:26] LABS: PLATELET COUNT, AUTOMATED 395 10^3/uL (150-450)
[2025-01-22 06:46] LABS: CALCIUM LEVEL 8.1 MG/DL (8.5-10.1); CARBON DIOXIDE LEVEL 31 MMOL/L (20-31); CHLORIDE LEVEL 107 MMOL/L (98-107); CREATININE FOR GFR 0.67 MG/DL (0.55-1.30); GLOMERULAR FILTRATION RATE > 90.0 (>51); POTASSIUM SERUM 3.6 MMOL/L (3.5-5.1); SODIUM LEVEL 147 MMOL/L (136-145)
[2025-01-22] MEDS: FUROSEMIDE 40 MG/4 ML VIAL IV SCH (08:55)
[2025-01-22] MEDS: D5W 1,000 ML IV SCH (10:23)
[2025-01-22 12:00] VITALS: BP 144/70; TEMP 97.9; O2SAT 93
[2025-01-22] MEDS: ACETAMINOPHEN 500 MG TAB PO SCH (13:13)
[2025-01-22 20:00] VITALS: BP 146/66; TEMP 95.6; O2SAT 95
[2025-01-22] MEDS: oxyCODONE 15MG CR TAB PO SCH (21:19)
[2025-01-23 04:00] VITALS: BP 145/67; TEMP 96.8; O2SAT 92
[2025-01-23 06:18] LABS: PLATELET COUNT, AUTOMATED 354 10^3/uL (150-450)
[2025-01-23 06:42] LABS: CALCIUM LEVEL 8.0 MG/DL (8.5-10.1); CARBON DIOXIDE LEVEL 32 MMOL/L (20-31); CHLORIDE LEVEL 105 MMOL/L (98-107); CREATININE FOR GFR 0.70 MG/DL (0.55-1.30); GLOMERULAR FILTRATION RATE > 90.0 (>51); POTASSIUM SERUM 3.5 MMOL/L (3.5-5.1); SODIUM LEVEL 146 MMOL/L (136-145)
[2025-01-23] MEDS: FUROSEMIDE 40 MG/4 ML VIAL IV SCH (08:42)
[2025-01-23 09:36] LABS: MAGNESIUM LEVEL 1.7 MG/DL (1.8-2.4)
[2025-01-23] MEDS: POTASSIUM CHLORIDE 10MEQ SR TABLET PO SCH (10:58)
[2025-01-23] MEDS: MAG SULF 1GM/100ML (MAG RUN) 1 GM in IV 1 EA IV SCH (11:00)
[2025-01-23 12:00] VITALS: BP 115/72; TEMP 97.7; O2SAT 94
[2025-01-23 18:27] LABS: CALCIUM LEVEL 8.1 MG/DL (8.5-10.1); CARBON DIOXIDE LEVEL 31 MMOL/L (20-31); CHLORIDE LEVEL 106 MMOL/L (98-107); CREATININE FOR GFR 0.72 MG/DL (0.55-1.30); GLOMERULAR FILTRATION RATE > 90.0 (>51); POTASSIUM SERUM 3.8 MMOL/L (3.5-5.1); SODIUM LEVEL 144 MMOL/L (136-145)
[2025-01-23 20:00] VITALS: BP 115/74; TEMP 98.4; O2SAT 93
[2025-01-24 04:00] VITALS: BP 100/52; TEMP 97.3; O2SAT 91
[2025-01-24 06:28] LABS: PLATELET COUNT, AUTOMATED 303 10^3/uL (150-450)
[2025-01-24 06:56] LABS: ALT/SGPT 10 U/L (7.0-40); AST/SGOT 34 U/L (<34); CALCIUM LEVEL 7.7 MG/DL (8.5-10.1); CARBON DIOXIDE LEVEL 31 MMOL/L (20-31); CHLORIDE LEVEL 107 MMOL/L (98-107); CREATININE FOR GFR 0.73 MG/DL (0.55-1.30); GLOMERULAR FILTRATION RATE > 90.0 (>51); MAGNESIUM LEVEL 2.0 MG/DL (1.8-2.4); POTASSIUM SERUM 4.3 MMOL/L (3.5-5.1); SODIUM LEVEL 143 MMOL/L (136-145)
[2025-01-24 12:12] VITALS: BP 137/77; TEMP 97.7; O2SAT 92
[2025-01-24 22:01] VITALS: BP 136/77; TEMP 97.3; O2SAT 92
[2025-01-25 03:39] VITALS: BP 134/84; TEMP 96.9; O2SAT 96
[2025-01-25 05:17] LABS: PLATELET COUNT, AUTOMATED 360 10^3/uL (150-450)
[2025-01-25 05:33] LABS: CALCIUM LEVEL 8.4 MG/DL (8.5-10.1); CARBON DIOXIDE LEVEL 30.0 MMOL/L (20-31); CHLORIDE LEVEL 103.0 MMOL/L (98-107); CREATININE FOR GFR 0.78 MG/DL (0.55-1.30); GLOMERULAR FILTRATION RATE 89.6 (>51); POTASSIUM SERUM 4.4 MMOL/L (3.5-5.1); SODIUM LEVEL 143.0 MMOL/L (136-145)
[2025-01-25 11:09] LABS: APPEARANCE, URINE CLEAR (CLEAR); BACTERIA, URINE AUTO NEGATIVE (NEGATIVE); BILIRUBIN, URINE AUTO NEGATIVE (NEGATIVE); BLOOD, URINE BLOOD NEGATIVE (NEGATIVE); GLUCOSE, URINE (UA) AUTO NEGATIVE (NEGATIVE); KETONE, URINE AUTO NEGATIVE (NEGATIVE); LEUKOCYTE ESTERASE, URINE AUTO NEGATIVE (NEGATIVE); NITRITE, URINE AUTO NEGATIVE (NEGATIVE); PROTEIN, URINE AUTO NEGATIVE (NEGATIVE); RBC, URINE AUTO 1 /HPF (0-3); SPECIFIC GRAVITY URINE AUTO 1.010 (1.002-1.035); SQUAMOUS EPITHELIAL CELL UR AU 3 /HPF (0-6); UROBILINOGEN, URINE AUTO 0.2 mg/dL (0.0-2.0); WBC, URINE AUTO 0 /HPF (0-3)
[2025-01-25 13:21] VITALS: BP 101/70; TEMP 97.5; O2SAT 97
[2025-01-25 19:07] VITALS: BP 112/65; TEMP 97.3; O2SAT 93
[2025-01-26 04:30] VITALS: BP 126/62; TEMP 97.7; O2SAT 90
[2025-01-26 05:06] LABS: PLATELET COUNT, AUTOMATED 311 10^3/uL (150-450)
[2025-01-26 05:56] LABS: CALCIUM LEVEL 8.3 MG/DL (8.5-10.1); CARBON DIOXIDE LEVEL 31.0 MMOL/L (20-31); CHLORIDE LEVEL 104.0 MMOL/L (98-107); CREATININE FOR GFR 0.92 MG/DL (0.55-1.30); GLOMERULAR FILTRATION RATE 73.5 (>51); MAGNESIUM LEVEL 1.9 MG/DL (1.8-2.4); POTASSIUM SERUM 4.3 MMOL/L (3.5-5.1); SODIUM LEVEL 145.0 MMOL/L (136-145)
[2025-01-26 11:47] VITALS: BP 109/64; TEMP 97.5; O2SAT 91
[2025-01-26] MEDS: FUROSEMIDE 40 MG/4 ML VIAL IV SCH ×2 (12:39→17:34)
[2025-01-26] MEDS ORDERED: ONDANSETRON 4MG 2ML VIAL IV PRN (18:10)
[2025-01-26 18:25] VITALS: BP 129/64; TEMP 97.7; O2SAT 87; O2SAT 92
[2025-01-26 20:01] VITALS: BP 131/66; TEMP 97.7; O2SAT 92
[2025-01-27 04:15] VITALS: BP 102/49; TEMP 97.9; O2SAT 91
[2025-01-27 05:56] LABS: PLATELET COUNT, AUTOMATED 341 10^3/uL (150-450)
[2025-01-27 06:35] LABS: ALT/SGPT 11.0 U/L (7.0-40); AST/SGOT 30.0 U/L (<34); CALCIUM LEVEL 8.5 MG/DL (8.5-10.1); CARBON DIOXIDE LEVEL 32.0 MMOL/L (20-31); CHLORIDE LEVEL 103.0 MMOL/L (98-107); CREATININE FOR GFR 0.81 MG/DL (0.55-1.30); GLOMERULAR FILTRATION RATE 85.7 (>51); MAGNESIUM LEVEL 2.0 MG/DL (1.8-2.4); POTASSIUM SERUM 4.5 MMOL/L (3.5-5.1); SODIUM LEVEL 143.0 MMOL/L (136-145)
[2025-01-27 18:29] LABS: CALCIUM LEVEL 8.8 MG/DL (8.5-10.1); CARBON DIOXIDE LEVEL 33.0 MMOL/L (20-31); CHLORIDE LEVEL 103.0 MMOL/L (98-107); CREATININE FOR GFR 1.11 MG/DL (0.55-1.30); GLOMERULAR FILTRATION RATE 58.7 (>51); POTASSIUM SERUM 4.5 MMOL/L (3.5-5.1); SODIUM LEVEL 145.0 MMOL/L (136-145)
[2025-01-27 20:30] VITALS: BP 132/72; TEMP 97.6; O2SAT 99
[2025-01-27] MEDS: LR 1,000 ML IV ONE (20:30)
[2025-01-27] MEDS: LR 250 ML IV SCH (22:14)
[2025-01-27] MEDS: LR 1,000 ML IV SCH (22:15)
[2025-01-28 03:45] VITALS: BP 117/59; TEMP 97.7; O2SAT 89
[2025-01-28 05:42] LABS: PLATELET COUNT, AUTOMATED 322 10^3/uL (150-450)
[2025-01-28 06:12] LABS: CALCIUM LEVEL 8.4 MG/DL (8.5-10.1); CARBON DIOXIDE LEVEL 31.0 MMOL/L (20-31); CHLORIDE LEVEL 104.0 MMOL/L (98-107); CREATININE FOR GFR 0.94 MG/DL (0.55-1.30); GLOMERULAR FILTRATION RATE 71.7 (>51); POTASSIUM SERUM 4.2 MMOL/L (3.5-5.1); SODIUM LEVEL 144.0 MMOL/L (136-145)
[2025-01-28 08:54] VITALS: BP 113/59; TEMP 97.9; O2SAT 93
[2025-01-28 12:00] VITALS: BP 111/54; TEMP 97.9; O2SAT 93
[2025-01-28 20:34] VITALS: BP 116/56; TEMP 97.5; O2SAT 94
[2025-01-29 04:19] VITALS: BP 102/52; TEMP 97.7; O2SAT 94
[2025-01-29 12:30] VITALS: BP 127/71; TEMP 97.5; O2SAT 100
[2025-01-29] MEDS: FUROSEMIDE 40 MG/4 ML VIAL IV SCH (12:46)
[2025-01-29] MEDS ORDERED: HYDROMORPHONE HCL 0.5 MG/0.5 ML SYRINGE As Ordered ONE (15:42)
[2025-01-29] MEDS: HYDROMORPHONE HCL 0.5 MG/0.5 ML SYRINGE IV PRN (16:00)
[2025-01-29 17:53] LABS: BASO # 0.1 10^3/uL (0.0-0.2); BASO % 2.6 % (0.0-1.0); EOS # 0.6 10^3/uL (0.0-0.5); EOS % 10.5 % (0.0-3.0); LYMPH # 1.5 10^3/uL (1.5-5.0); LYMPH % 28.4 % (24.0-44.0); MONO # 0.5 10^3/uL (0.0-0.8); MONO % 9.4 % (2.0-8.0); NEUTROPHILS # 2.6 10^3/uL (1.5-8.5); NEUTROPHILS % 48.7 % (36.0-66.0); PLATELET COUNT, AUTOMATED 334 10^3/uL (150-450)
[2025-01-29 18:12] LABS: CALCIUM LEVEL 8.9 MG/DL (8.5-10.1); CARBON DIOXIDE LEVEL 32.0 MMOL/L (20-31); CHLORIDE LEVEL 103.0 MMOL/L (98-107); CREATININE FOR GFR 0.97 MG/DL (0.55-1.30); GLOMERULAR FILTRATION RATE 69.0 (>51); POTASSIUM SERUM 4.5 MMOL/L (3.5-5.1); SODIUM LEVEL 143.0 MMOL/L (136-145)
[2025-01-29 19:32] VITALS: BP 135/73; TEMP 97.7; O2SAT 99
[2025-01-30 05:55] LABS: PLATELET COUNT, AUTOMATED 295 10^3/uL (150-450)
[2025-01-30 06:16] LABS: CALCIUM LEVEL 8.2 MG/DL (8.5-10.1); CARBON DIOXIDE LEVEL 28 MMOL/L (20-31); CHLORIDE LEVEL 104 MMOL/L (98-107); CREATININE FOR GFR 0.86 MG/DL (0.55-1.30); GLOMERULAR FILTRATION RATE 79.7 (>51); MAGNESIUM LEVEL 1.9 MG/DL (1.8-2.4); POTASSIUM SERUM 4.3 MMOL/L (3.5-5.1); SODIUM LEVEL 141 MMOL/L (136-145)
[2025-01-30] MEDS: FERROUS GLUCONATE 324 MG TAB PO SCH (08:25)
[2025-01-30] MEDS: GASTROGRAFIN SOLUTION 30ML PO SCH (11:32)
[2025-01-30 16:27] LABS: C REACTIVE PROTEIN QUANTITATIV < 0.50 MG/DL (<1.0)
[2025-01-30 16:40] VITALS: O2SAT 100
[2025-01-30 19:56] VITALS: BP 119/59; TEMP 97.7; O2SAT 97
[2025-01-31 04:00] VITALS: BP 120/58; TEMP 97.9; O2SAT 93
[2025-01-31 06:22] LABS: PLATELET COUNT, AUTOMATED 316 10^3/uL (150-450)
[2025-01-31 07:04] LABS: CALCIUM LEVEL 8.3 MG/DL (8.5-10.1); CARBON DIOXIDE LEVEL 28.0 MMOL/L (20-31); CHLORIDE LEVEL 104.0 MMOL/L (98-107); CREATININE FOR GFR 0.84 MG/DL (0.55-1.30); GLOMERULAR FILTRATION RATE 82.0 (>51); MAGNESIUM LEVEL 1.9 MG/DL (1.8-2.4); POTASSIUM SERUM 4.2 MMOL/L (3.5-5.1); SODIUM LEVEL 141.0 MMOL/L (136-145)
[2025-01-31 11:46] VITALS: BP 123/59; TEMP 97.7; O2SAT 95
[2025-01-31 20:08] VITALS: BP 112/55; TEMP 97.7; O2SAT 95
[2025-02-01 03:48] VITALS: BP 160/73; TEMP 97.5; O2SAT 96
[2025-02-01 06:50] LABS: PLATELET COUNT, AUTOMATED 336 10^3/uL (150-450)
[2025-02-01] MEDS: GABAPENTIN 300 MG CAP PO ONE (06:54)
[2025-02-01 07:25] LABS: CALCIUM LEVEL 8.9 MG/DL (8.5-10.1); CARBON DIOXIDE LEVEL 28 MMOL/L (20-31); CHLORIDE LEVEL 103 MMOL/L (98-107); CREATININE FOR GFR 0.77 MG/DL (0.55-1.30); GLOMERULAR FILTRATION RATE > 90.0 (>51); MAGNESIUM LEVEL 1.9 MG/DL (1.8-2.4); POTASSIUM SERUM 4.4 MMOL/L (3.5-5.1); SODIUM LEVEL 142 MMOL/L (136-145)
[2025-02-01 12:00] VITALS: BP 119/54; TEMP 97.3; O2SAT 98
[2025-02-01] MEDS: FIDAXOMICIN 200 MG TAB PO SCH (14:22)
[2025-02-01] MEDS: HYDROMORPHONE HCL 0.5 MG/0.5 ML SYRINGE IV PRN (15:19)
[2025-02-01 20:00] VITALS: BP 135/74; TEMP 97.7; O2SAT 98
[2025-02-02 04:00] VITALS: BP 99/53; TEMP 97.7; O2SAT 92
[2025-02-02 05:24] LABS: PLATELET COUNT, AUTOMATED 310 10^3/uL (150-450)
[2025-02-02 05:49] LABS: CALCIUM LEVEL 8.7 MG/DL (8.5-10.1); CARBON DIOXIDE LEVEL 28 MMOL/L (20-31); CHLORIDE LEVEL 107 MMOL/L (98-107); CREATININE FOR GFR 0.71 MG/DL (0.55-1.30); GLOMERULAR FILTRATION RATE > 90.0 (>51); MAGNESIUM LEVEL 2.0 MG/DL (1.8-2.4); POTASSIUM SERUM 4.6 MMOL/L (3.5-5.1); SODIUM LEVEL 145 MMOL/L (136-145)
[2025-02-02 12:00] VITALS: BP 123/50; TEMP 97.7; O2SAT 97
[2025-02-02] MEDS: FUROSEMIDE 40 MG TAB PO SCH (16:12)
[2025-02-02 20:00] VITALS: BP 119/79; TEMP 97.5; O2SAT 98
[2025-02-03 04:00] VITALS: BP 108/62; TEMP 97.7; O2SAT 94
[2025-02-03 04:55] LABS: PLATELET COUNT, AUTOMATED 309 10^3/uL (150-450)
[2025-02-03 05:13] LABS: CALCIUM LEVEL 8.5 MG/DL (8.5-10.1); CARBON DIOXIDE LEVEL 30 MMOL/L (20-31); CHLORIDE LEVEL 104 MMOL/L (98-107); CREATININE FOR GFR 0.73 MG/DL (0.55-1.30); GLOMERULAR FILTRATION RATE > 90.0 (>51); MAGNESIUM LEVEL 2.0 MG/DL (1.8-2.4); POTASSIUM SERUM 4.7 MMOL/L (3.5-5.1); SODIUM LEVEL 140 MMOL/L (136-145)
[2025-02-03 12:00] VITALS: BP 123/61; TEMP 97.7; O2SAT 99
[2025-02-03] MEDS: HYDROmorphone 2 MG TAB PO PRN (12:50)
[2025-02-04 03:55] VITALS: BP 116/59; TEMP 97.5; O2SAT 96
[2025-02-04 05:48] LABS: PLATELET COUNT, AUTOMATED 308 10^3/uL (150-450)
[2025-02-04 06:15] LABS: CALCIUM LEVEL 8.9 MG/DL (8.5-10.1); CARBON DIOXIDE LEVEL 29 MMOL/L (20-31); CHLORIDE LEVEL 103 MMOL/L (98-107); CREATININE FOR GFR 0.70 MG/DL (0.55-1.30); GLOMERULAR FILTRATION RATE > 90.0 (>51); MAGNESIUM LEVEL 1.9 MG/DL (1.8-2.4); POTASSIUM SERUM 4.7 MMOL/L (3.5-5.1); SODIUM LEVEL 140 MMOL/L (136-145)
[2025-02-05 04:30] VITALS: BP 108/54; TEMP 97.3; O2SAT 98
[2025-02-05 06:31] LABS: PLATELET COUNT, AUTOMATED 293 10^3/uL (150-450)
[2025-02-05 06:56] LABS: CALCIUM LEVEL 8.8 MG/DL (8.5-10.1); CARBON DIOXIDE LEVEL 30.0 MMOL/L (20-31); CHLORIDE LEVEL 104.0 MMOL/L (98-107); CREATININE FOR GFR 0.78 MG/DL (0.55-1.30); GLOMERULAR FILTRATION RATE 89.6 (>51); MAGNESIUM LEVEL 2.0 MG/DL (1.8-2.4); POTASSIUM SERUM 4.4 MMOL/L (3.5-5.1); SODIUM LEVEL 142.0 MMOL/L (136-145)
[2025-02-05] MEDS: POTASSIUM CHLORIDE 10MEQ SR TABLET PO SCH (08:16)
[2025-02-05] MEDS: FUROSEMIDE 20 MG TAB PO ONE (12:25)
[2025-02-05] MEDS ORDERED: SALIVA SUBSTITUTE BTL MT PRN (17:35)
[2025-02-06 04:07] VITALS: BP 120/70; TEMP 97.7; O2SAT 97
[2025-02-07 03:01] VITALS: BP 119/53; TEMP 97.9; O2SAT 96
[2025-02-07 21:59] VITALS: BP 158/77; TEMP 97.5
[2025-02-07 22:00] VITALS: O2SAT 96
[2025-02-07 22:37] VITALS: TEMP 98.4; O2SAT 93
[2025-02-08 04:22] VITALS: BP 147/59; TEMP 97.9; O2SAT 97
[2025-02-08 04:30] VITALS: TEMP 97.9
[2025-02-08 06:22] LABS: CALCIUM LEVEL 8.8 MG/DL (8.5-10.1); CARBON DIOXIDE LEVEL 32 MMOL/L (20-31); CHLORIDE LEVEL 104 MMOL/L (98-107); CREATININE FOR GFR 0.69 MG/DL (0.55-1.30); GLOMERULAR FILTRATION RATE > 90.0 (>51); POTASSIUM SERUM 3.9 MMOL/L (3.5-5.1); SODIUM LEVEL 144 MMOL/L (136-145)
[2025-02-08 10:07] VITALS: BP 148/60
[2025-02-08] MEDS ORDERED: FURO40TA2 PO (10:56)
[2025-02-08] MEDS ORDERED: NYST10006 TOP (10:56)
[2025-02-08] MEDS ORDERED: OXYC15TA66 PO (10:56)
[2025-02-08] MEDS ORDERED: FERR32TA PO (10:56)
[2025-02-08] MEDS ORDERED: DILA2TAB6 PO (10:56)
[2025-02-08] MEDS ORDERED: POTA-136 PO (10:56)
[2025-02-08] MEDS ORDERED: OXYC-517 PO (10:56)
== END 2025-02-08 13:10 | DRG 329 ==
LOC: M ED 17:23 → M ED INP 20:16 → M PCU 12-30 02:43 → M MSPAV 01-03 16:22
PROVIDERS: ADMIT Student in an Organized Health Care Education/Training Program; ATTEND Student in an Organized Health Care Education/Training Program
PROC: 30233N1 Transfusion of Nonautologous Red Blood Cells into Peripheral Vein, Percutaneous Approach (ICD-10-PCS; 2024-12-29)
PROC: 0DB68ZX Excision of Stomach, Via Natural or Artificial Opening Endoscopic, Diagnostic (ICD-10-PCS; 2025-01-01)
PROC: 0DBH8ZX Excision of Cecum, Via Natural or Artificial Opening Endoscopic, Diagnostic (ICD-10-PCS; 2025-01-02)
PROC: 0DBK8ZZ Excision of Ascending Colon, Via Natural or Artificial Opening Endoscopic (ICD-10-PCS; 2025-01-02)
PROC: 0DTF4ZZ Resection of Right Large Intestine, Percutaneous Endoscopic Approach (ICD-10-PCS; principal; 2025-01-08 07:30)
DX: C18.0 Malignant neoplasm of cecum (principal); A40.9 Streptococcal sepsis, unspecified; C18.2 Malignant neoplasm of ascending colon; C77.2 Secondary and unspecified malignant neoplasm of intra-abdominal lymph nodes; D62 Acute posthemorrhagic anemia; E87.0 Hyperosmolality and hypernatremia; I48.19 Other persistent atrial fibrillation; N39.0 Urinary tract infection, site not specified; K91.89 Other postprocedural complications and disorders of digestive system; G72.81 Critical illness myopathy; R18.0 Malignant ascites; A04.72 Enterocolitis due to Clostridium difficile, not specified as recurrent; K86.2 Cyst of pancreas; T81.41XA Infection following a procedure, superficial incisional surgical site, initial encounter; E03.9 Hypothyroidism, unspecified; E11.9 Type 2 diabetes mellitus without complications; J45.909 Unspecified asthma, uncomplicated; D63.8 Anemia in other chronic diseases classified elsewhere; I10 Essential (primary) hypertension; E87.70 Fluid overload, unspecified; Z79.01 Long term (current) use of anticoagulants; Z88.2 Allergy status to sulfonamides; Z79.899 Other long term (current) drug therapy; K64.8 Other hemorrhoids

== ENCOUNTER → 2025-03-05 | Outpatient (CLI) | payer OTHER ==
[~2025-03-05] MED LIST: ALBU2.5V10 INH; ATOR1TAB21 PO; CARV12.5 PO; CLAR10CA3 PO; CYMB1CAP5 PO; DILA1LIQ2 PO; DILA2TAB6 PO; DULA3PEN SQ; DULO1CAP4 PO; DULO1CAP6 PO; ELIQ5TAB PO; FERR32TA PO; FLEC100T27 PO; FLUT15.820 NARES; FOLI0.4T5 PO; FOLI1TAB11 PO; FURO40TA2 PO; GABA-1635 PO; GABA-284 PO; IBUP80TA PO; KETO60IN IJ; LEVO150T7 PO; LEVO75TA4 PO; LIDO15SO8 PO; METF10004 PO; MILKSUS3 PO; MONT10TA97 PO; NEUR800T PO; NYST10006 TOP; OXYC-517 PO; OXYC10TA12 PO; OXYC15TA66 PO; PANT40TA29 PO; POTA-136 PO; ROPI1TAB73 PO; SIME80CH6 PO; TELM1TAB37 PO; TIOT18INH INH; TIZA4CAP3 PO; VALS1TAB66 PO; VENTAER INH; VITA500C24 PO; [UNRECOGNIZED DRUG - CODE] XX
== END ==
LOC: M PLARAD 09:36
PROVIDERS: ATTEND Internal Medicine Hematology & Oncology
DX: C18.8 Malignant neoplasm of overlapping sites of colon (principal)
CPT/HCPCS: 78815; A9552

== ENCOUNTER → 2025-03-12 | Outpatient (CLI) | payer OTHER ==
[~2025-03-12] VITALS: Ht 167.6 cm; Wt 127.0 kg
[~2025-03-12] MED LIST changes: +LIDO30CR18 TOP; +ceFAZolin SODIUM 2 GM in DEXTROSE 5% (D5W) ADV/MINI-BAG 50 ML IV ONE
[2025-03-12 08:15] VITALS: TEMP 96.8
[2025-03-12] MEDS: ceFAZolin SOD 3 GM in DEXTROSE 5% (D5W) MINI-BAG PLU 1... IV ONE (08:52)
[2025-03-12] MEDS: NS (Normal Saline) 0.9% 1,000 ML IV SCH (08:53)
[2025-03-12] MEDS: LIDOCAINE 1% MDV 20 ML VIAL SC SCH (09:51)
[2025-03-12] MEDS: MIDAZOLAM INJ 2 MG/2 ML VIAL IV PRN (09:53)
[2025-03-12 10:30] VITALS: BP 155/69; O2SAT 100
== END ==
LOC: M IRPRO 07:56
PROVIDERS: ATTEND Internal Medicine Hematology & Oncology
DX: C18.8 Malignant neoplasm of overlapping sites of colon (principal)
CPT/HCPCS: 36561; 99152; J0688; J1642; J2250; J3010

== ENCOUNTER → 2025-03-22 | Outpatient (CLI) | payer OTHER ==
[~2025-03-22] MED LIST changes: -ceFAZolin SODIUM 2 GM in DEXTROSE 5% (D5W) ADV/MINI-BAG 50 ML IV ONE
== END ==
LOC: M ONCR 09:49
PROVIDERS: ATTEND General Practice
DX: C18.2 Malignant neoplasm of ascending colon (principal); K86.2 Cyst of pancreas; Z98.890 Other specified postprocedural states; Z90.710 Acquired absence of both cervix and uterus; Z87.891 Personal history of nicotine dependence; Z88.1 Allergy status to other antibiotic agents; Z88.2 Allergy status to sulfonamides; Z88.5 Allergy status to narcotic agent; Z79.51 Long term (current) use of inhaled steroids; Z79.899 Other long term (current) drug therapy; Z79.01 Long term (current) use of anticoagulants

== ENCOUNTER → 2025-03-26 | Outpatient (POV) | payer OTHER ==
[~2025-03-26] VITALS: Ht 167.6 cm; Wt 127.3 kg
[~2025-03-26] MED LIST changes: -FOLI0.4T5 PO; +FOLI400T2 PO
[2025-03-26 10:35] VITALS: BP 169/73; O2SAT 99
== END ==
LOC: M IRPOV 10:20
PROVIDERS: ATTEND Registered Nurse School
DX: Z45.2 Encounter for adjustment and management of vascular access device (principal); Z88.1 Allergy status to other antibiotic agents; Z88.2 Allergy status to sulfonamides; Z88.5 Allergy status to narcotic agent

== ENCOUNTER 2025-05-30 22:29 | Emergency (ER) | payer OTHER ==
[~2025-05-30] VITALS: Ht 167.6 cm; Wt 145.0 kg
[~2025-05-30 22:29] MED LIST changes: +LEVO88TA3 PO; +LOPE1CAP5 PO; +NYST1POW3 TOP; +ONDA-84 PO; +PROC10TA5 PO
[2025-05-30 22:30] VITALS: TEMP 98.2
[2025-05-30] MEDS: HEPARIN LOCK FLUSH 100 UNITS/ML 3 ML SYRINGE IV ONE (23:35)
[2025-05-30 23:45] VITALS: BP 177/84; O2SAT 97
== END 2025-05-31 00:04 | disposition home or self-care (01) ==
LOC: M ED 22:29
DX: T82.594A Other mechanical complication of infusion catheter, initial encounter (principal); C18.9 Malignant neoplasm of colon, unspecified; E11.9 Type 2 diabetes mellitus without complications; I10 Essential (primary) hypertension; G25.81 Restless legs syndrome; E03.9 Hypothyroidism, unspecified; Z86.718 Personal history of other venous thrombosis and embolism; Z86.79 Personal history of other diseases of the circulatory system; Z88.2 Allergy status to sulfonamides; Z88.5 Allergy status to narcotic agent; Z88.8 Allergy status to other drugs, medicaments and biological substances; Z79.52 Long term (current) use of systemic steroids; Z79.01 Long term (current) use of anticoagulants; Z79.899 Other long term (current) drug therapy; Z79.4 Long term (current) use of insulin

== ENCOUNTER → 2025-06-06 | Outpatient (CLI) | payer OTHER ==
[~2025-06-06] MED LIST changes: +ISOVUE-370 76% 100 ML VIAL As Ordered ONE
== END ==
LOC: M RAD 16:27
DX: C18.9 Malignant neoplasm of colon, unspecified (principal)